=== PATIENT | female | born 1965 | race Caucasian/White ===

== ENCOUNTER 2019-05-31 16:07 | Emergency (ER) | payer BC ==
[~2019-05-31] VITALS: Ht 165.1 cm; Wt 67.1 kg
[2019-05-31] MEDS ORDERED: CRESTOR5 MG PO (16:39)
[2019-05-31] MEDS ORDERED: SYNTHROID125 MC1 PO (16:40)
[2019-05-31] MEDS ORDERED: LEXAPRO20 MG PO (16:40)
[2019-05-31] MEDS ORDERED: NORFLEX100 MG PO (18:35)
[2019-05-31] MEDS ORDERED: IBUPROFEN 800800 M1 PO ×2 (18:39→18:42)
[2019-05-31 18:54] VITALS: BP 126/82
== END 2019-05-31 18:55 | disposition home or self-care (01) ==
LOC: ER 16:07
DX: S16.1XXA Strain of muscle, fascia and tendon at neck level, initial encounter (principal); E78.00 Pure hypercholesterolemia, unspecified; E03.9 Hypothyroidism, unspecified; F32.9 Major depressive disorder, single episode, unspecified; V89.2XXA Person injured in unspecified motor-vehicle accident, traffic, initial encounter; Y93.89 Activity, other specified; Y92.411 Interstate highway as the place of occurrence of the external cause; Y99.8 Other external cause status